=== PATIENT | female | born 1970 | race Caucasian/White ===

== ENCOUNTER 2024-03-21 12:17 | Emergency (ER) | payer OTHER, SELFPAY ==
[2024-03-21 12:25] VITALS: BP 131/95
[2024-03-21 12:44] LABS: % Basophils 0.6 % (0-2); % Eosinophils 0.7 % (0-6); % Immature Granulocytes 0.3 % (0-0.5); % Monocytes 8.1 % (1.7-9.3); % Neutrophils 61.3 % (42.2-75.2); Absolute Eosinophils 0.1 10^3/uL (0-0.7); Absolute Monocytes 0.6 10^3/uL (0.1-0.6); Absolute Neutrophils 4.3 10^3/uL (1.4-6.5); Hemoglobin 14.6 g/dL (12.0-16.0); Mean Corpuscular Hgb 30.3 pg (27.0-31.0); Mean Corpuscular Volume 89.2 fL (81.0-99.0); Nucleated Red Blood Cells % 0 %; Platelet Count 283 10^3/uL (130-400); Red Blood Cell Count 4.82 10^6/uL (4.20-5.40); Red Cell Dist. Width 12.4 % (11.5-14.5)
[2024-03-21 13:01] LABS: ALT (SGPT) 26 U/L (0-35); AST (SGOT) 30 U/L (14-36); Albumin 5.1 g/dl (3.5-5.0); Alkaline Phosphatase 69 U/L (38-126); Blood Urea Nitrogen 16 mg/dl (7-17); Calcium 9.1 mg/dl (8.4-10.2); Carbon Dioxide 30 mmol/L (22-30); Chloride 98 mmol/L (98-107); Glucose 104 mg/dl (70-99); Potassium 3.6 mmol/L (3.5-5.1); Sodium 142 mmol/L (135-145); eGFR > 60.00
[2024-03-21 13:14] LABS: Troponin I < 0.012 ng/ml
[2024-03-21 13:56] LABS: Urine Albumin 1+ (Neg - Trace); Urine Bilirubin 3+ (Negative); Urine Character Clear (Clear); Urine Glucose Negative (Negative); Urine Ketone Negative (Negative); Urine Leukocyte Trace (Negative); Urine Nitrite Positive (Negative); Urine Occult Blood Trace (Negative); Urine Specific Gravity 1.015 (<1.030); Urine Urobilinogen 4+ (Neg - 1+)
[2024-03-21 14:06] LABS: Urine Color Orange
[2024-03-21 14:58] LABS: Urine Amorphous Seen
[2024-03-21 15:03] LABS: Urine Bacteria Moderate (Negative); Urine Red Blood Cell 0-2 /HPF (0-2)
--- NOTE | 2024-03-21 15:17 | ED.GENMED ---
Addendum entered and electronically signed by Gideon Chambers PA-C 03/23/24 08:36:
Urine culture shows greater than 100,000 colony-forming units of Proteus species. Sensitivities pending. On antibiotics
Original Note:
History of Present Illness
General
Chief Complaint: Breathing Problem
Source: patient and spouse
Exam Limitations: none
Time Seen by Provider: 03/21/24 15:09
Nursing documentation reviewed up to this point in time: agreed with
History of Present Illness
History of Present Illness:
53-year-old female with a past medical history of non-Hodgkin's lymphoma status post bone marrow transplant currently in remission x 8 years; she presents to the emergency room for evaluation of shortness of breath and chest heaviness in the setting
of recent urinary symptoms. Patient reports that she started having UTI symptoms 4 days ago that she says she has had dysuria, increased frequency and suprapubic pressure and started to develop some right sided flank pain. She had a telehealth
appointment 3 days ago and was prescribed Bactrim twice daily x 3 days ( 6 total doses); she started taking the antibiotic yesterday and has taken 3 total doses (2 yesterday, 1 this morning). Denies fever, denies vomiting. She says that this morning
she started to have some shortness of breath�she describes sensation as if she needs to take a deep breath. She says symptoms are mild but persistent and so she decided she should come to the emergency room to be evaluated. She said she did have
some chest heaviness this morning since has resolved. She has not had any cough. She denies URI symptoms. She denies any swelling or pain in the legs. She denies similar symptoms in the past.
Review of Systems
Review of Systems
All Other Systems: ROS reviewed and negative except as documented in HPI and ROS
Constitutional: Reports fatigue; Denies fever or chills
EENT: Denies sore throat or runny nose
Respiratory: Reports trouble breathing; Denies cough
Cardiac: Reports chest pain (Heaviness); Denies palpitations
ABD/GI: Reports abdominal pain; Denies nausea or vomiting
: Reports dysuria, frequency and flank pain
Musculoskeletal: Denies edema or neck pain
Neurological: Denies dizzy or headache
Phy Exam
Physical Exam
Physical Exam:
General: Awake, alert, oriented x3; no acute distress
Head: Normocephalic, atraumatic
Eyes: Conjunctiva normal, sclera
Throat: Airway intact, handling secretions
Neck: Trachea midline, supple without meningismus, no JVD
Lungs: Clear to auscultation bilaterally, no wheezing, rales, rhonchi
Heart: Regular rate and rhythm, no murmurs, gallops, or rubs
Abd: Soft, non distended, mild suprapubic tenderness
Back: No CVA tenderness
Neuro: No gross deficits
Skin: no rash
Extremities: No edema in extremities, warm and well-perfused
Scores
Heart Failure Risk
Heart Failure Risk Score: Not Applicable
Heart Score for Chest Pain Patients
STEMI patient?: Not applicable
Withdrawal Assessment of Alcohol
Withdrawal Assessment Completed?: Not applicable
Course
Orders/Labs/Results
Orders:
Orders
03/21/24 12:24
Electrocardiogram (*1) Urgent
Reason for Study: Shortness of Breath
EKG- Treatment ONCE
CR Chest - 2 Views Urgent
Comment:
Reason For Exam: SOB
03/21/24 12:36
Complete Blood Count/With Diff Urgent
Comprehensive Metabolic Panel Urgent
Troponin I Urgent
03/21/24 13:49
Urinalysis Reflex To Culture Urgent
Date Specimen was Collected: 03/21/24
Time Specimen was Collected: 13:43
Urine Microscopic Reflex Cult Urgent
Urine Culture Urgent
RIN Source: U
Specimen Description:
Date Specimen was Collected: 03/21/24
Time Specimen was Collected: 13:43
03/21/24 15:39
D-Dimer Urgent
Troponin I Urgent
Abnormal Lab Results
03/21/24 03/21/24
12:36 13:49
Glucose 104 H mg/dl
(70-99)
Albumin 5.1 H g/dl
(3.5-5.0)
Ur Occult Blood Reflex Trace A
(Negative)
Urine Nitrite (Reflex) Positive A
(Negative)
Urine Bilirubin 3+ A
(Negative)
Urine Urobilinogen 4+ A
(Neg - 1+)
Leukocyte Esterase Rfl Trace A
(Negative)
Urine WBC (Reflex) 11-15 A /HPF
(0-5)
Urine Bacteria (Reflex) Moderate A
(Negative)
Urine Albumin (Reflex) 1+ A
(Neg - Trace)
03/21/24 12:36
03/21/24 12:36
Vital Signs
Initial and Last Documented VS:
Initial Vital Signs
Temp Pulse Resp BP Pulse Ox
36.9 C 82 16 131/95 98
03/21/24 12:25 03/21/24 12:25 03/21/24 12:25 03/21/24 12:25 03/21/24 12:25
Last Documented Vital Signs
Temp Pulse Resp BP Pulse Ox
36.9 C 82 16 131/95 98
03/21/24 12:25 03/21/24 12:25 03/21/24 12:25 03/21/24 12:25 03/21/24 12:25
MDM/Problems Addressed
Differential Diagnosis Includes:
Urinary symptoms: UTI/pyelonephritis; less likely kidney stone with minimal pain
Shortness of breath: Anemia, pneumonia, pneumothorax, PE, ACS/angina, dysrhythmia, anxiety
MDM/Problems Addressed:
53-year-old female presents to the emergency room for evaluation of mild shortness of breath and brief episode of chest heaviness today in the setting of recent UTI symptoms and recent initiation of ciprofloxacin. Vitals normal. Exam as above.
She had lab work sent in triage including a CBC which shows normal hemoglobin, no clinically significant abnormalities. CMP within acceptable range. She had an undetectable troponin, EKG shows sinus rhythm with no acute ischemia. She had a
urinalysis sent off which is still positive for infection with moderate bacteria and pyuria; she is only had 24 hours of antibiotics. She had a chest x-ray which showed no acute disease. Will plan to send repeat troponin to rule out [place]. Check
D-dimer. Reassess after the above.
Repeat troponin undetectable, D-dimer negative. Patient's vitals have remained stable with normal pulse ox and normal respiratory rate. Lungs are clear. Low suspicion for emergent pathology at this point in time. She does still have positive UA
usp through course of Bactrim. Shows no signs of sepsis, no clear indication for admission to the hospital but I do think it is reasonable to switch antibiotics and prolong course especially given that she reports some flank pain suggestive of
ascending UTI. Will discharge with close outpatient PCP follow-up and strict return precautions. Patient is comfortable with this plan. All questions answered.
*Radiology
Radiology exam reviewed: radiology read reviewed
*Pulse Oximetry
Patient hypoxic: no
*EKG
Interpreted by ED Provider?: Yes
Heart Rate: 80
Rate: normal
Rhythm: sinus
[place]: normal axis
Interval: normal interval
QRS Pattern: normal QRS
Ischemia: no ischemia
*Critical Care Note
Total Time (30-74mins, 75-104mins- exclusive of procedures): Not Applicable
Data Reviewed
Source: patient and spouse
ED Attending Note
-
Portions of this chart may have been created with voice recognition software.� Occasional wrong word or��sound alike� substitutions may have occurred due to the inherent limitations of voice recognition software.
Discharge Plan
Departure
Patient Disposition: Home (Routine Discharge)
Date of Disposition: 03/21/24
Time of Disposition: 16:29
Patient with high blood pressure during this ER visit?: No
Discharge Problem:
UTI (urinary tract infection), Dyspnea
Instructions: Shortness of Breath (Dyspnea) (DC), Urinary Tract Infection, Adult ED
Prescriptions:
New
cefpodoxime 200 mg tablet
200 mg PO BID 10 Days Qty: 20 0RF
Referrals:
Wilfredo Paz MD [Family Provider] - Follow up in 2-3 days
Activity Restrictions/Additional Instructions:
Thank you for visiting the Emergency Department at [facility].
1. Please schedule a follow up appointment as directed. Call first thing tomorrow morning to make an appointment.
2. If indicated, please take your medications as instructed and indicated on discharge paperwork.
3. If any of your symptoms do not improve, or persist, or become more severe within 6-12 hours, please return to the emergency department for further care.
4. Please return to the emergency department if you develop a headache, neck pain/stiffness, fever greater than 100.4F, chest pain, shortness of breath, persistent nausea, vomiting, slurred speech, difficulty walking, numbness/tingling, weakness,
signs of infection or any other symptoms that are worrisome to you.
Please call [phone] if you have any questions.
Interventions
Interventions:
*Risk Screen - Suicide Last Done: 03/21/24 12:25
*General Assessment Last Done: 03/21/24 12:25
*Neglect/Abuse Screening Last Done: 03/21/24 12:25
*ED COVID-19 Vaccine History Last Done: 03/21/24 12:25
ED- Cardiac Assessment Last Done: 03/21/24 15:51
ED- Pulmonary Assessment Last Done: 03/21/24 15:51
Discharge Date and Time
Print Language: JAPANESE
[2024-03-21 16:03] LABS: D-Dimer 0.32 ug/mlFEU (0.00-0.50)
[2024-03-21 16:13] LABS: Troponin I < 0.012 ng/ml
== END 2024-03-21 17:29 | disposition home or self-care (01) ==
LOC: EMR 12:17
PROVIDERS: Emergency Medicine; EMERGENCY PHYSICIAN Emergency Medicine; FAMILY PHYSICIAN Internal Medicine
DX: N39.0 Urinary tract infection, site not specified (principal); R06.00 Dyspnea, unspecified; C85.9A Non-Hodgkin lymphoma, unspecified, in remission; Z94.81 Bone marrow transplant status
CPT/HCPCS: 99283; 71046; 80053; 81003; 81015; 84484; 85025; 85379; 87077; 87086; 93005

== ENCOUNTER 2024-10-28 10:55 | Emergency (ER) | payer OTHER, SELFPAY ==
[2024-10-28 10:59] VITALS: BP 154/111
--- NOTE | 2024-10-28 11:28 | EDRN ---
Dr. Cristina in room w/ pt at this time.
[2024-10-28 11:36] VITALS: BMI 35.5
[2024-10-28 11:49] VITALS: BP 138/89
--- NOTE | 2024-10-28 11:51 | ED.GENMED ---
History of Present Illness
General
Chief Complaint: Dizziness
Source: patient and spouse
Exam Limitations: none
Time Seen by Provider: 10/28/24 11:12
Nursing documentation reviewed up to this point in time: agreed with
History of Present Illness
History of Present Illness:
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
of breath pain into her arm almost like she was carsick, took her blood pressure today was elevated had high blood pressure during but not chronically, has chronic pains in her legs due to neuropathy no history of DVT PE no fevers
Past History
Past History
ED Past Medical History: Cancer
Social History
Tobacco: Non-smoker
Alcohol: None
Drug: None
Personal:
Living: with family
Employment: Employed
Phy Exam
Physical Exam
Physical Exam:
Physical Exam
General: no apparent distress, not acutely ill
Neck: No jaundice
Heart: s1/s2 regular rate and rhythm, no murmur. equal radial pulses.
Lungs: no acute respiratory distress. clear bilaterally
Abdomen: Not tender
Neuro: alert and oriented. no focal neurological deficits
Skin: no rash
Psychiatric: well kept. interactive and cooperative
Extremities: Trace edema no calf pain
Course
Orders/Labs/Results
Orders:
Orders
10/28/24 10:57
Electrocardiogram (*1) Urgent
Reason for Study: Chest Pain
EKG- Treatment ONCE
10/28/24 11:29
CT Head W/o Iv Contrast Urgent
Comment:
Reason For Exam: headache
CR Chest - 2 Views Urgent
Comment:
Reason For Exam: sob
10/28/24 11:42
0.9% Sodium Chloride 1000 ml [Nss] 1,000 ml IV BOLUS
Ondansetron Injectable [Zofran] 4 mg IV NOW STA
10/28/24 11:45
Complete Blood Count/With Diff Urgent
Comprehensive Metabolic Panel Urgent
D-Dimer Urgent
Lipase Urgent
Magnesium Urgent
TSH Urgent
Troponin I Urgent
10/28/24 14:06
Ketorolac [Toradol] 30 mg IV NOW STA
Abnormal Lab Results
10/28/24
11:45
BUN 21 H mg/dl
(7-17)
Glucose 105 H mg/dl
(70-99)
10/28/24 11:45
10/28/24 11:45
Vital Signs
Initial and Last Documented VS:
Initial Vital Signs
Temp Pulse Resp BP Pulse Ox
98.2 F 88 16 154/111 98
10/28/24 10:59 10/28/24 10:59 10/28/24 10:59 10/28/24 10:59 10/28/24 10:59
Last Documented Vital Signs
Temp Pulse Resp BP Pulse Ox
98.2 F 72 13 139/79 98
10/28/24 10:59 10/28/24 14:00 10/28/24 14:00 10/28/24 13:00 10/28/24 13:45
MDM/Problems Addressed
Differential Diagnosis Includes:
Pneumonia heart failure vertigo PE dissection malignancy electrolyte abnormality
MDM/Problems Addressed:
Dizziness nausea shortness of breath
Chronic conditions affecting care: Cancer
Acute Exacerbation and/or Progression of Chronic Illness: Cancer
*Radiology
Radiology exam reviewed: radiology read reviewed
*Pulse Oximetry
SaO2: 98
Oxygen Mode of Delivery: Room air
Patient hypoxic: no
*EKG
Interpreted by ED Provider?: Yes
Interpretation: normal
Heart Rate: 78
Rate: normal
Rhythm: sinus
Ischemia: non-specific ST changes
*[place] [employer] Judge Interpretation
Rate: normal
Interpretation: normal
Heart Rate: 78
Rhythm: sinus
*Critical Care Note
Total Time (30-74mins, 75-104mins- exclusive of procedures): Not Applicable
Update Note
Update Note:
1:15 PM update labs noted including D-dimer and troponin which are reassuring CT of the head chest x-ray noted blood pressure is normalized
2:15 PM patient feels well, blood pressures normalized encouraged her to take her blood pressure keep trends discussed with her primary care provider
ED Attending Note
-
Portions of this chart may have been created with voice recognition software.� Occasional wrong word or��sound alike� substitutions may have occurred due to the inherent limitations of voice recognition software.
Discharge Plan
Departure
Patient Disposition: Home (Routine Discharge)
Date of Disposition: 10/28/24
Time of Disposition: 14:13
Patient with high blood pressure during this ER visit?: Yes
Condition: Good
Covid-19: Not Applicable
Discharge Problem:
Dizziness, Chest pain
Instructions: BLOOD PRESSURE, Dizziness, Chest Pain CBC Follow Up
Prescriptions:
No Action
cefpodoxime 200 mg tablet
200 mg PO BID 10 Days Qty: 20 0RF
Referrals:
Ester Zuniga MD [Family Provider, Hematology / Oncology]
Michael Ingram MD [Active, Cardiology] - Next open appointment
Interventions
Interventions:
*Risk Screen - Suicide Last Done: 10/28/24 10:59
*General Assessment Last Done: 10/28/24 11:35
*Neglect/Abuse Screening Last Done: 10/28/24 10:59
*ED- Fall Risk Assessment Last Done: 10/28/24 10:59
*ED COVID-19 Vaccine History Last Done: 10/28/24 11:35
ED- Neurological Assessment Last Done: 10/28/24 11:49
ED- Cardiac Assessment Last Done: 10/28/24 11:49
Discharge Date and Time
Print Language: TURKISH
[2024-10-28 11:54] LABS: % Basophils 0.6 % (0-2); % Immature Granulocytes 0.2 % (0-0.5); % Lymphocytes 33.2 % (20.5-51.1); % Monocytes 8.9 % (1.7-9.3); % Neutrophils 56.1 % (42.2-75.2); Absolute Eosinophils 0.1 10^3/uL (0-0.7); Absolute Lymphocytes 1.6 10^3/uL (1.2-3.4); Absolute Monocytes 0.4 10^3/uL (0.1-0.6); Absolute Neutrophils 2.7 10^3/uL (1.4-6.5); Hematocrit 40.9 % (37.0-47.0); Mean Corp Hgb Conc. 34.2 g/dL (33.0-37.0); Mean Corpuscular Hgb 30.2 pg (27.0-31.0); Mean Corpuscular Volume 88.1 fL (81.0-99.0); Nucleated Red Blood Cells % 0 %; Platelet Count 245 10^3/uL (130-400); Red Blood Cell Count 4.64 10^6/uL (4.20-5.40); Red Cell Dist. Width 12.4 % (11.5-14.5); White Blood Cell Count 4.9 10^3/uL (4.8-10.8)
[2024-10-28 12:04] LABS: D-Dimer < 0.27 ug/mlFEU (0.00-0.50)
[2024-10-28] MEDS: NSS 1000 IV (12:17)
[2024-10-28 12:18] VITALS: BP 126/102
[2024-10-28 12:19] VITALS: BP 136/89
[2024-10-28] MEDS: ZOFRAN 4 MG IV (12:20)
[2024-10-28 12:24] LABS: ALT (SGPT) 19 U/L (0-35); AST (SGOT) 29 U/L (14-36); Albumin 4.4 g/dl (3.5-5.0); Alkaline Phosphatase 44 U/L (38-126); Blood Urea Nitrogen 21 mg/dl (7-17); Carbon Dioxide 30 mmol/L (22-30); Chloride 104 mmol/L (98-107); Estimated Creatinine Clearance 113 ml/min; Glucose 105 mg/dl (70-99); Lipase 177 U/L (23-300); Magnesium 2.3 mg/dl (1.6-2.3); Potassium 4.7 mmol/L (3.5-5.1); Sodium 140 mmol/L (135-145); Total Bilirubin 1.2 mg/dl (0.2-1.3); Total Protein 7.3 g/dl (6.3-8.2); eGFR > 60.00
[2024-10-28 12:25] LABS: Troponin I < 0.012 ng/ml
[2024-10-28 12:52] LABS: TSH 1.63 uIU/ml (0.47-4.68)
[2024-10-28 13:00] VITALS: BP 139/79
[2024-10-28] MEDS: TORADOL 30 MG IV (14:15)
== END 2024-10-28 14:40 | disposition home or self-care (01) ==
LOC: EMR 10:55
PROVIDERS: EMERGENCY PHYSICIAN Emergency Medicine; FAMILY PHYSICIAN Internal Medicine Hematology & Oncology
DX: R42 Dizziness and giddiness (principal); R07.89 Other chest pain
CPT/HCPCS: 99284; 96374; 96375; 96361; 70450; 71046; 80053; 83690; 83735; 84443; 84484; 85025; 85379; 93005

== ENCOUNTER → 2024-12-11 07:30 | Outpatient (REF) | payer OTHER, SELFPAY ==
--- NOTE | 2024-12-11 08:15 | CARDSERVLU ---
Echocardiogram with [facility] completed after protocol screening completed. Allergies verified.
Patent IV site: _new start 1st attempt 20P RAC, small valve positional, flushed, good blood return____
IV site flushed with 0.9% NaCl pre and post administration.
Diluted bolus method utilized to enhance visualization of ventricular [place].
Total volume given: __2.0__ mL
site dcd at completion of testing.
Patient tolerated all procedures well without complications.
== END ==
LOC: RCS 07:30
PROVIDERS: ATTENDING PHYSICIAN Internal Medicine Cardiovascular Disease; FAMILY PHYSICIAN Nurse Practitioner
DX: Z85.72 Personal history of non-Hodgkin lymphomas (principal)
CPT/HCPCS: 93225; 93226; 93306; Q9950

== ENCOUNTER → 2024-12-21 15:31 | Outpatient (REF) | payer OTHER, SELFPAY | LOC: WDC 15:31 | PROVIDERS: ATTENDING PHYSICIAN Nurse Practitioner | DX: Z12.31 Encounter for screening mammogram for malignant neoplasm of breast (principal) | CPT/HCPCS: 77063; 77067 ==